=== PATIENT | female | born 1985 | race Caucasian/White ===

== ENCOUNTER 2018-05-25 23:36 | Emergency (ER) | payer SELFPAY ==
--- NOTE | 2018-05-26 05:53 | Emergency Room Report ---
History of Present Illness General Source: Patient Present Illness HPI Is a 32-year-old female with no past medical history. She presents with chief complaint. First one is vaginal discharge. Onset for last week. Whitish discharge. Itching. She is sexually active. Has protected sex. No nausea no vomiting. No bleeding. No dysuria frequency. Second complaint is anal itching. She sees some whitish small wormlike parasite. Worse at night. No nausea no vomiting. No anal sex. No discharge. Patient History Past Medical History: none, see triage record, old chart reviewed Past Surgical History: none Pertinent Family History: none Social History: Denies: smoking Now: No Immunizations: other Reviewed Nursing Documentation: PMH: Agreed; PSxH: Agreed Review of Systems Eye: Denies: eye pain, blurred vision ENT: Denies: ear pain, nose congestion, throat swelling Respiratory: Denies: cough, shortness of breath Cardiovascular: Denies: chest pain, palpitations Gastrointestinal: Denies: abdominal pain, diarrhea, nausea, vomiting Genitourinary: Reports: vag bleed/dc Musculoskeletal: Denies: back pain, joint pain Skin: Denies: rash Neurological: Denies: headache, numbness Endocrine: Denies: increased thirst, increased urine Hematologic/Lymphatic: Denies: easy bruising All Other Systems: negative except mentioned in HPI Physical Exam Sp02 EP Interpretation: reviewed, normal General Appearance: well appearing, no apparent distress, alert Head: normocephalic, atraumatic Eyes: bilateral eye PERRL, bilateral eye EOMI ENT: hearing grossly normal, normal pharynx Neck: full range of motion, supple, no meningismus Respiratory: chest non-tender, lungs clear, normal breath sounds Cardiovascular #1: regular rate, rhythm, no murmur Gastrointestinal: normal bowel sounds, non tender, no mass, no organomegaly, no bruit, non-distended Rectal: other - No obvious parasitic infection Genitourinary: other - 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 External exam normal. Internal exam showed copious amount of whitish discharge. No cervical motion tenderness. Musculoskeletal: back normal, gait/station normal, normal range of motion Neurologic: alert, oriented x3 Psychiatric: mood/affect normal Skin: warm/dry Medical Decision Making Diagnostic Impression: Primary Impression: Bacterial vaginosis Additional Impression: Pinworm infection ER Course Patient presents with vaginal discharge. Most likely bacterial vaginosis. Could be Trichomonas. No evidence of UTI. Her other symptom is worisome for pinworms. We'll discharge with Vermox. Status: unchanged Disposition: HOME, SELF-CARE Condition: Stable Referrals: NOT CHOSEN IPA/,REFERRING (PCP) Dmitri Franks MD May 26, 2018 05:53
== END 2018-05-26 01:30 | disposition home or self-care (01) ==
LOC: EMR 23:36
DX: N76.0 Acute vaginitis (principal); B80 Enterobiasis
CPT/HCPCS: 99281